=== PATIENT | male | born 1955 | race Caucasian/White ===

== ENCOUNTER 2016-10-21 08:29 | Emergency (ER) | payer BC ==
[2016-10-21] MEDS ORDERED: Acetaminophen TAB* 325 MG PO ONE (08:57)
--- NOTE | 2016-10-21 08:57 | UC ---
Hand/Wrist HPI - History Of Current Complaint Chief Complaint: UCLaceration Stated Complaint: FINGER LAC - Allergies/Home Medications Allergies/Adverse Reactions: Allergies Allergy/AdvReac Type Severity Reaction Status Date / Time No Known Allergies Allergy Verified 10/21/16 08:39 Home Medications: Home Medications Atenolol TAB* [Tenormin TAB* 25 MG] 25 mg PO DAILY 10/21/16 [History Confirmed 10/21/16] Atorvastatin* [Lipitor*] 40 mg PO BEDTIME 10/21/16 [History Confirmed 10/21/16] Lisinopril TAB* [Prinivil TAB*] 20 mg PO DAILY 10/21/16 [History Confirmed 10/21] Omeprazole CAP* [Prilosec CAP* 20 MG] 40 mg PO DAILY 10/21/16 [History Confirmed 10/21/16] Tamsulosin CAP* [Flomax CAP*] 0.4 mg PO DAILY 10/21/16 [History Confirmed ] Ticagrelor* [Brilinta*] 90 mg PO BID 10/21/16 [History Confirmed 10/21/16] amLODIPine TAB* [Norvasc 5 mg TAB*] 10 mg PO DAILY 10/21/16 [History Confirmed 10/21/16] glipiZIDE TAB.XL* [Glucotrol XL*] 10 mg PO DAILY 10/21/16 [History Confirmed ] metFORMIN* [Glucophage 500 MG TAB *] 1,000 mg PO BID 10/21/16 [History Confirmed 10/21/16] PMH/Surg Hx/FS Hx/Imm Hx Endocrine History Of: Reports: Diabetes Cardiovascular History Of: Reports: Cardiac Disorders - CAD, Stent, Hypertension GI/ History Of: Denies: Renal Disease - Surgical History Surgical History: Yes Surgery Procedure, Year, and Place: Left Carotid Endarterectomy, 09/03/16, [facility]; [place] [facility] [place], [place], [facility] [place]ge, [place], [facility] [place] - Social History Alcohol Use: Rare Substance Use Type: Marijuana Smoking Status (MU): Former Smoker Type: Cigars - Immunization History Most Recent Influenza Vaccination: March 2016 Most Recent Tetanus Shot: Unsure Most Recent Pneumonia Vaccination: never Physical Exam Vital Signs: Initial Vital Signs Temp 98.1 F 10/21/16 08:37 Pulse 102 10/21/16 08:37 Resp 18 10/21/16 08:37 BP 182/74 10/21/16 08:37 Pulse Ox 99 10/21/16 08:37
--- NOTE | 2016-10-21 09:29 | RAD ---
Indication: Laceration RIGHT second finger at level of proximal phalanx; crush injury. Comparison: None. Technique: 3 views RIGHT second finger Report: Overlying bandage limits image quality. Fusiform soft tissue swelling. On all 3 views a 1.5 mm maximum dimension linear density is visualized at the level of the dorsal superficial soft tissue plane at the level of the mid diaphysis of the proximal phalanx. Correlate with clinical assessment and consider repeat exam with the bandage removed. Negative for fracture or malalignment. IMPRESSION: Potential small foreign body within the superficial dorsal soft tissue plane at the level of the mid diaphysis of the proximal phalanx.
[2016-10-21] MEDS ORDERED: Lidocaine 2% 10 ML* VIAL INJ ONE (10:05)
[2016-10-21] MEDS ORDERED: Lidocaine 2% PF * 5 ML VIAL INJ ONE (10:08)
--- NOTE | 2016-10-21 10:11 | UC ---
Laceration HPI - HPI Summary HPI Summary: Patient hand was sandwiched bewteen two peices of steel. sustained cut the the right second finger. pain, and bleeding, he is on blood thinners. - History Of Current Complaint Chief Complaint: UCLaceration Stated Complaint: FINGER LAC Time Seen by Provider: 10/21/16 09:59 Hx Obtained From: Patient Laceration Location: Finger Mechanism Of Injury: Blunt Trauma Onset/Duration: Sudden Onset, Lasting Hours Severity: Severe Aggravating Factors: Movement Related History: Occupational Injury - Allergies/Home Medications Allergies/Adverse Reactions: Allergies Allergy/AdvReac Type Severity Reaction Status Date / Time No Known Allergies Allergy Verified 10/21/16 08:39 Home Medications: Home Medications Atenolol TAB* [Tenormin TAB* 25 MG] 25 mg PO DAILY 10/21/16 [History Confirmed 10/21/16] Atorvastatin* [Lipitor*] 40 mg PO BEDTIME 10/21/16 [History Confirmed 10/21/16] Lisinopril TAB* [Prinivil TAB*] 20 mg PO DAILY 10/21/16 [History Confirmed 10/21] Omeprazole CAP* [Prilosec CAP* 20 MG] 40 mg PO DAILY 10/21/16 [History Confirmed 10/21/16] Tamsulosin CAP* [Flomax CAP*] 0.4 mg PO DAILY 10/21/16 [History Confirmed ] Ticagrelor* [Brilinta*] 90 mg PO BID 10/21/16 [History Confirmed 10/21/16] amLODIPine TAB* [Norvasc 5 mg TAB*] 10 mg PO DAILY 10/21/16 [History Confirmed 10/21/16] glipiZIDE TAB.XL* [Glucotrol XL*] 10 mg PO DAILY 10/21/16 [History Confirmed ] metFORMIN* [Glucophage 500 MG TAB *] 1,000 mg PO BID 10/21/16 [History Confirmed 10/21/16] PMH/Surg Hx/FS Hx/Imm Hx Previously Healthy: Yes Endocrine History Of: Reports: Diabetes Cardiovascular History Of: Reports: Cardiac Disorders - CAD, Stent, Hypertension GI/ History Of: Denies: Renal Disease - Surgical History Surgical History: Yes Surgery Procedure, Year, and Place: Left Carotid Endarterectomy, 09/03/16, [facility]; Coronary Artery Stent, 2015, [facility] [place]; Bilateral Inguinal Herniorrhaphies, ~ 2001, [facility] [place]; Left Knee Bone Spurs and Cartiladge, 1980, [facility] [place] - Family History Known Family History: Negative: Hypertension - Social History Alcohol Use: Rare Substance Use Type: Marijuana Smoking Status (MU): Former Smoker Type: Cigars - Immunization History Most Recent Influenza Vaccination: March 2016 Most Recent Tetanus Shot: Unsure Most Recent Pneumonia Vaccination: never Review of Systems Constitutional: Negative Skin: Other - lacertaion Eyes: Negative ENT: Negative Respiratory: Negative Cardiovascular: Negative Gastrointestinal: Negative Genitourinary: Negative Motor: Negative Neurovascular: Negative Musculoskeletal: Negative Neurological: Negative Psychological: Negative All Other Systems Reviewed And Are Negative: Yes Physical Exam Triage Information Reviewed: Yes Appearance: Ill-Appearing Vital Signs: Initial Vital Signs Temp 98.1 F 10/21/16 08:37 Pulse 102 10/21/16 08:37 Resp 18 10/21/16 08:37 BP 182/74 10/21/16 08:37 Pulse Ox 99 10/21/16 08:37 Vital Signs Reviewed: Yes Eye Exam: Normal Eyes: Positive: Conjunctiva Clear ENT Exam: Normal ENT: Positive: Hearing grossly normal, Pharynx normal, TMs normal Dental Exam: Normal Neck exam: Normal Neck: Positive: Supple, Nontender, No Lymphadenopathy Respiratory Exam: Normal Respiratory: Positive: Chest non-tender, Lungs clear, Normal breath sounds Cardiovascular Exam: Normal Cardiovascular: Positive: No Murmur, Pulses Normal, Tachycardia Abdominal Exam: Normal Abdomen Description: Positive: Nontender, No Organomegaly, Soft Bowel Sounds: Positive: Present Musculoskeletal Exam: Normal Musculoskeletal: Positive: Strength Intact, ROM Intact, No Edema Neurological Exam: Normal Neurological: Positive: Alert, Muscle Tone Normal Psychological Exam: Normal Skin Exam: Normal Laceration Repair - Laceration Repair 1 Description: Irregular : No Repair Necessary Laceration Size After Repair: Length (cm) - 3 cm Contamination/FB Removal: small black flack removed before suturing Modified For Repair: No Type Injection: Digital Anesthesia Used: 2.0% Lido Cleansing Completed Via Routine Prep: Yes Irrigation With Pressure Irrigation Device: Yes Closure Material: Sutures - 4 Closure Method: Single Layer Suture Of: Skin Suture Type: Nylon Laceration Course/Dx - Course/Dx Course Of Treatment: hx obtained, exam performed, meds reviewed, xray obtained, small FB noted in hand, irragation completed, laceration repaired, pressure dressing applied. - Differential Dx - Laceration/Wound Differental Diagnoses: Abrasion, Avulsion, Cellulitis, Foreign Body, Fracture, Joint Infection, Laceration Provider Diagnoses: irregular laceration to right index finger Discharge - Discharge Plan Condition: Stable Disposition: HOME Patient Education Materials: Laceration (ED), Care For Your Stitches (ED) Additional Instructions: Keep the pressure bandage on for the next 24 hours. change it if blood seeps through keep finger elevated above the heart, it will help decrease bleeding tomorrow you can change the dressing, wear the splint for the next 5 days while working to allow for better healing. follow up with any signs of infection, redness, swelling, pain, fever or unusual drainage.
[2016-10-21 11:04] VITALS: BP 155/77
[2016-10-21] MEDS ORDERED: Tetan/Diph/Pertus SYR(Tdap)* 0.5 ML SYR(BOOSTRIX) use SYR IM ONE (11:04)
== END 2016-10-21 11:16 | disposition home or self-care (01) ==
LOC: UCCORT 08:29
DX: S61.210A Laceration without foreign body of right index finger without damage to nail, initial encounter (principal); W23.0XXA Caught, crushed, jammed, or pinched between moving objects, initial encounter; Y93.89 Activity, other specified; Y92.89 Other specified places as the place of occurrence of the external cause; Y99.0 Civilian activity done for income or pay; Z23 Encounter for immunization; E11.9 Type 2 diabetes mellitus without complications; Z79.84 Long term (current) use of oral hypoglycemic drugs; I25.10 Atherosclerotic heart disease of native coronary artery without angina pectoris; Z95.5 Presence of coronary angioplasty implant and graft; I10 Essential (primary) hypertension; F12.90 Cannabis use, unspecified, uncomplicated; Z87.891 Personal history of nicotine dependence
CPT/HCPCS: 12002; 73140; 90471; 90715; 99213; A9270-GY; G0463; J2001

== ENCOUNTER → 2017-07-25 11:02 | Day surgery (SDC) | payer BC ==
[~2017-07-25 11:02] MED LIST: Heparin 2 UNITS/ML IVPREMIX* 3,000 ML IV ONE; Iohexol 350 (CONTRAST) 200 ML MDV IV ONE; Lidocaine 1% INJ* 10 MG/ML 30 ML SDV ONE; Midazolam* 1 MG/ML 10 ML VIAL (10 MG) ONE; NS 0.9% 1000 ML* 1,000 ML IV SCH; fentaNYL* 50 MCG/ML 2 ML VIAL (100 MCG VIAL) ONE
[2017-07-25 16:15] VITALS: BP 125/70
--- NOTE | 2017-07-26 11:08 | CATH ---
CARDIAC CATHETERIZATION REPORT: DATE OF PROCEDURE: 07/25/17 PROCEDURE: Cardiac catheterization including coronary angiography. INDICATION: Coronary artery disease, angina, abnormal stress test. The patient is a 62-year-old gentleman with a history of coronary artery disease, history of stenting to his obtuse marginal branch off his left circumflex artery in 2014. The patient recently started having anginal-type symptoms. He underwent a chemical nuclear stress test, which demonstrated ischem ia to his lateral wall. Cardiac catheterization was recommended. DESCRIPTION OF PROCEDURE: The patient was in a fasting state. Informed consent had been obtained pr ior to the procedure, all labs were reviewed. The patient was placed supine on the procedure table. Both femoral areas were cleaned and draped in usual fashion. 1% lidocaine was used for local anesth esia. The right femoral artery was entered by a modified Seldinger technique and a 6-Mauritanian sheath i ntroducer was placed. The patient underwent coronary angiography using 6-Mauritanian JL4 and a 6-Mauritanian J R4 catheter. At the end of the procedure, a Mynx closure device was deployed to femoral artery. The patient tolerated the procedure well. There were no complications. A total of 45 cc of Omnipaque dy e was used. A total of 1.3 minutes of fluoro time was used. FINDINGS: 1. Left main: Left main was normal in size. It bifurcated into the LAD and circumflex. There was no evidence of stenosis. 2. Left anterior descending artery: The LAD was normal in size. It gave off 1 diagonal branch. Th ere was no evidence of stenosis. 3. Left circumflex artery: The left circumflex artery was normal in size. It had an ostial 40% yelena nosis to left circumflex. The first obtuse marginal was occluded at the initiation of the stent to t he obtuse marginal. There were [id number] and [id number] collaterals. The remainder of the l eft circumflex artery was a small nondominant vessel. 4. Right coronary artery: The RCA was a large dominant vessel giving off the PDA and posterolateral branch. There was no evidence of stenosis. IMPRESSION: 1. Occluded left circumflex stent with both [id number] and smomn-[id number] collaterals. 2. 40% ostial stenosis of the left circumflex artery. RECOMMENDATION: The patient will be considered for repeat angioplasty and stenting to his left circu mflex artery because it is a chronically occluded vessel. The patient will be referred to [facility]. [id number]/[facility] #: [id number]
== END | disposition home or self-care (01) ==
LOC: CHICATH 11:02
PROVIDERS: ATTEND Specialist
DX: I25.118 Atherosclerotic heart disease of native coronary artery with other forms of angina pectoris (principal); Z95.5 Presence of coronary angioplasty implant and graft; I25.9 Chronic ischemic heart disease, unspecified; I10 Essential (primary) hypertension; E11.9 Type 2 diabetes mellitus without complications; Z79.84 Long term (current) use of oral hypoglycemic drugs; E78.5 Hyperlipidemia, unspecified; K21.9 Gastro-esophageal reflux disease without esophagitis; Z87.891 Personal history of nicotine dependence
CPT/HCPCS: 93454; C1760; C1887; J1644; J2250; J3010